=== PATIENT | male | born 1960 | race African-American/Black ===

== ENCOUNTER 2020-12-20 09:28 | Inpatient (IN) ==
[2020-12-20 10:05] LABS: ABG Base Excess 0.4 MMOL/L (-2.5-2.5); ABG HCO3 24.7 MMOL/L (20-26); ABG Oxygen Saturation 93.8 % (95-100); ABG PCO2 40.3 MM HG (35-48); ABG PH 7.402 (7.35-7.45); ABG PO2 69.9 MM HG (80-95); ABG TCO2 21.9 MMOL/L (23-27)
[2020-12-20 10:15] LABS: Basophils # 0.1 10*3/uL (0.0-0.2); Basophils % 0.5 % (0.0-0.8); Eosinophils # 0.2 10*3/uL (0.0-0.87); Eosinophils % 1.5 % (0.00-10.9); Hematocrit 40.6 VOL% (42.0-52.0); Immature Granulocytes % 0.3 %; Immature Granulocytes Absolute 0.03 #; Lymphocytes # 2.7 10*3/uL (1.4-4.0); Lymphocytes % 27.3 % (21.2-54.2); Mean Corpuscular Volume 85.8 FL (87-102); Mean Platelet Volume 10.8 FL (9.6-12.0); Monocytes % 7.9 % (1.7-12.7); Neutrophils % 62.5 % (38.7-73.9); Platelet Count 211 T/CUMM (130-400); Red Blood Count 4.73 MC/CUMM (3.8-5.5); Red Cell Distribution Width 13.7 % (9.3-17.3)
[2020-12-20 10:32] LABS: PT Patient Result 11.1 SECS (10.5-12.0)
[2020-12-20 10:34] LABS: Bilirubin,Total 1.2 MG/DL (0.2-1.0); Osmolality,Calculated 285.4 MOS/KG (273-304); Potassium 4.1 MMOL/L (3.5-5.1); Total Protein 7.6 G/DL (6.4-8.2)
[2020-12-20] MEDS ORDERED: HEPARIN 1,000 UNIT/1 ML VIAL IV STA (11:14)
[2020-12-20] MEDS ORDERED: HEPARIN 5,000 UNIT/1 ML VIAL IV STA (11:16)
[2020-12-20] MEDS ORDERED: HEPARIN 5,000 UNIT/1 ML VIAL ONE (11:21)
[2020-12-20] MEDS: ENOXAPARIN 120 MG/0.8 ML SYRINGE SUBCUT SCH (12:30)
[2020-12-20] MEDS ORDERED: ALBUTEROL 2.5 MG/3 ML NEB RESP TX PRN (12:42)
[2020-12-20] MEDS ORDERED: GLUCAGON 1 MG VIAL IM PRN (12:42)
[2020-12-20] MEDS ORDERED: DEXTROSE 50% 25 GM/50 ML VIAL IV PRN (12:42)
[2020-12-20] MEDS: LACTATED RINGERS 1,000 ML IV SCH ×2 (14:00→23:31)
[2020-12-20] MEDS: INSULIN LISPRO 100 UNIT/ML SUBCUT SCH ×2 (16:35→20:37)
[2020-12-20] MEDS ORDERED: traZODone 50 MG TABLET PO PRN (19:55)
[2020-12-20] MEDS: traZODone 50 MG TABLET PO PRN (21:25)
[2020-12-21] MEDS: ENOXAPARIN 120 MG/0.8 ML SYRINGE SUBCUT SCH (00:20)
[2020-12-21 04:23] LABS: Basophils % 0.3 % (0.0-0.8); Eosinophils # 0.1 10*3/uL (0.0-0.87); Eosinophils % 1.3 % (0.00-10.9); Hematocrit 38.7 VOL% (42.0-52.0); Hemoglobin 12.4 GM/DL (14.0-18.0); Immature Granulocytes % 0.3 %; Immature Granulocytes Absolute 0.03 #; Lymphocytes # 2.2 10*3/uL (1.4-4.0); Lymphocytes % 24.3 % (21.2-54.2); Mean Corpuscular Volume 85.2 FL (87-102); Mean Platelet Volume 10.6 FL (9.6-12.0); Monocytes % 8.3 % (1.7-12.7); Neutrophils % 65.5 % (38.7-73.9); Platelet Count 186 T/CUMM (130-400); Red Blood Count 4.54 MC/CUMM (3.8-5.5); Red Cell Distribution Width 13.7 % (9.3-17.3); White Blood Count 9.1 T/CUMM (4-12)
[2020-12-21 04:32] LABS: PT Patient Result 11.3 SECS (10.5-12.0)
[2020-12-21 04:42] LABS: ABG Base Excess 2.4 MMOL/L (-2.5-2.5); ABG HCO3 26.6 MMOL/L (20-26); ABG Oxygen Saturation 97.3 % (95-100); ABG PH 7.405 (7.35-7.45); ABG PO2 93.5 MM HG (80-95); ABG TCO2 24.3 MMOL/L (23-27); Allen Test Positive
[2020-12-21 04:51] LABS: Albumin 3.2 G/DL (3.4-5.0); Bilirubin,Total 0.9 MG/DL (0.2-1.0); Calcium 8.9 MG/DL (8.5-10.1); Osmolality,Calculated 278.7 MOS/KG (273-304); Potassium 3.9 MMOL/L (3.5-5.1); Risk Ratio 2.33; Total Protein 6.6 G/DL (6.4-8.2); VLDL Cholesterol 18.6 MG/DL
[2020-12-21] MEDS ORDERED: hydrALAZINE 20 MG/1 ML VIAL IV PRN (05:10)
[2020-12-21] MEDS ORDERED: amLODIPine 10 MG TABLET PO ONE (05:16)
[2020-12-21] MEDS: INSULIN LISPRO 100 UNIT/ML SUBCUT SCH ×4 (07:43→21:54)
[2020-12-21] MEDS ORDERED: amLODIPine 10 MG TABLET PO SCH (09:00)
[2020-12-21] MEDS: LACTATED RINGERS 1,000 ML IV SCH ×2 (09:56→23:47)
[2020-12-21] MEDS: APIXABAN 5 MG TABLET PO SCH ×2 (10:30→21:53)
[2020-12-21] MEDS: INSULIN GLARGINE 100 UNIT/ML SUBCUT SCH (10:34)
[2020-12-21] MEDS: ATORVASTATIN 40 MG TABLET PO SCH (21:53)
[2020-12-21] MEDS: traZODone 50 MG TABLET PO PRN (22:42)
[2020-12-22 05:58] LABS: Basophils % 0.5 % (0.0-0.8); Eosinophils # 0.1 10*3/uL (0.0-0.87); Eosinophils % 1.7 % (0.00-10.9); Hematocrit 36.2 VOL% (42.0-52.0); Hemoglobin 11.9 GM/DL (14.0-18.0); Immature Granulocytes % 0.2 %; Immature Granulocytes Absolute 0.02 #; Lymphocytes # 1.9 10*3/uL (1.4-4.0); Lymphocytes % 22.8 % (21.2-54.2); Mean Corpuscular HGB Conc 32.9 GM/DL (32-36); Monocytes % 10.4 % (1.7-12.7); Neutrophils % 64.4 % (38.7-73.9); Platelet Count 152 T/CUMM (130-400); Red Blood Count 4.26 MC/CUMM (3.8-5.5); Red Cell Distribution Width 13.9 % (9.3-17.3); White Blood Count 8.5 T/CUMM (4-12)
[2020-12-22 07:03] LABS: Calcium 8.8 MG/DL (8.5-10.1); Potassium 3.8 MMOL/L (3.5-5.1); Total Protein 6.5 G/DL (6.4-8.2)
[2020-12-22] MEDS: APIXABAN 5 MG TABLET PO SCH ×2 (08:25→21:44)
[2020-12-22] MEDS: amLODIPine 10 MG TABLET PO SCH (08:25)
[2020-12-22] MEDS: INSULIN LISPRO 100 UNIT/ML SUBCUT SCH ×4 (08:25→21:45)
[2020-12-22] MEDS: INSULIN GLARGINE 100 UNIT/ML SUBCUT SCH (08:26)
[2020-12-22] MEDS ORDERED: ALUMINUM/MAGNES/SIMETH MAX STR 30 ML UDCUP PO PRN (09:57)
[2020-12-22 11:54] LABS: Bilirubin,Urine Negative (Negative); Blood, Urine Negative (Negative); Glucose,Urine (UA) 50 mg/dL (Negative); Ketones,Urine Negative (Negative); Mucus,Urine Few /LPF (Occasional); Nitrite,Urine Negative (Negative); Protein,Urine 100 MG/DL; RBC,Urine 5 /HPF (0-4); Urine Appearance CLEAR (Clear); Urine Color Yellow (Yellow); Urine Specific Gravity 1.021 (1.001-1.035); Urine Urobilinogen < 2.0 EU/DL (0.2-1.0)
[2020-12-22] MEDS: ATORVASTATIN 40 MG TABLET PO SCH (21:44)
[2020-12-23] MEDS: amLODIPine 10 MG TABLET PO SCH (08:15)
[2020-12-23] MEDS: APIXABAN 5 MG TABLET PO SCH (08:16)
[2020-12-23] MEDS: INSULIN GLARGINE 100 UNIT/ML SUBCUT SCH (08:16)
[2020-12-23] MEDS: INSULIN LISPRO 100 UNIT/ML SUBCUT SCH ×2 (08:17→13:14)
[2020-12-23] MEDS ORDERED: PANTOPRAZOLE 40 MG TABLET PO SCH (09:00)
[2020-12-23 12:58] VITALS: BP 163/90
== END 2020-12-23 15:11 | disposition home or self-care (01) | DRG 175 ==
LOC: N.ED 09:28 → SUATTDRO 12:42 → N.EDINP 12:42 → N.ICU 13:34 → N.TELEN 12-21 11:36
PROVIDERS: ADMIT Family Medicine; ATTEND Internal Medicine

== ENCOUNTER 2021-05-29 17:09 | Inpatient (IN) ==
[2021-05-29] MEDS ORDERED: ASPIRIN 325 MG TABLET PO STA (17:54)
[2021-05-29 18:51] LABS: Basophils % 0.1 % (0.0-0.8); Hematocrit 45.6 VOL% (42.0-52.0); Hemoglobin 14.8 GM/DL (14.0-18.0); Immature Granulocytes % 0.7 %; Immature Granulocytes Absolute 0.08 #; Lymphocytes # 0.5 10*3/uL (1.4-4.0); Lymphocytes % 4.3 % (21.2-54.2); Mean Corpuscular HGB Conc 32.5 GM/DL (32-36); Mean Corpuscular Volume 83.7 FL (87-102); Mean Platelet Volume 11.7 FL (9.6-12.0); Monocytes % 6.3 % (1.7-12.7); Neutrophils % 88.6 % (38.7-73.9); Platelet Count 144 T/CUMM (130-400); Red Blood Count 5.45 MC/CUMM (3.8-5.5); Red Cell Distribution Width 20.3 % (9.3-17.3); White Blood Count 12.1 T/CUMM (4-12)
[2021-05-29 19:12] LABS: INR 1.3; PT Patient Result 14.2 SECS (10.5-12.0)
[2021-05-29 19:16] LABS: Albumin 2.8 G/DL (3.4-5.0); Bilirubin,Total 2.6 MG/DL (0.20-1.00); Calcium 8.8 MG/DL (8.5-10.1); Lymphocytes 3 % (20-55); Osmolality,Calculated 299.2 MOS/KG (273-304); Segmented Neutrophils 96 % (50-85); Total Cells Counted 100; Total Protein 7.2 G/DL (6.4-8.2)
[2021-05-29 19:17] LABS: Anisocytosis 1+; Macrocytosis Slight; Microcytosis 1+; Platelet Estimate Adequate; Polychromasia Few; Target Cells Few
[2021-05-29 19:18] LABS: Burr Cells 1+; Poikilocytosis 1+
[2021-05-29] MEDS ORDERED: FUROSEMIDE 40 MG/4 ML VIAL IV STA (19:43)
[2021-05-29] MEDS ORDERED: INSULIN REGULAR 100 UNIT/ML IV STA (19:43)
[2021-05-29] MEDS ORDERED: GLUCAGON 1 MG VIAL IM PRN (20:19)
[2021-05-29] MEDS ORDERED: ACETAMINOPHEN 325 MG TABLET PO PRN (20:41)
[2021-05-29] MEDS ORDERED: ONDANSETRON 4 MG/2 ML VIAL IV PRN (20:41)
[2021-05-29] MEDS ORDERED: DEXTROSE 50% 25 GM/50 ML SYRINGE IV PRN (20:54)
[2021-05-29] MEDS ORDERED: INSULIN REGULAR 100 UNIT/ML SUBCUT STA (20:57)
[2021-05-29] MEDS ORDERED: INSULIN LISPRO 100 UNIT/ML SUBCUT SCH (21:00)
[2021-05-29] MEDS ORDERED: APIXABAN 5 MG TABLET PO SCH (21:00)
[2021-05-29 22:14] LABS: Hepatitis B Core IgM Quant 0.14 Index; Hepatitis B Surface Ag Quant < 0.10 Index; Hepatitis B Surface Ag Result Non-Reactive (NonReactive); Hepatitis C Virus Ab Quant < 0.02 Index; Hepatitis C Virus Ab Result Non-Reactive (NonReactive)
[2021-05-29] MEDS: ENOXAPARIN 120 MG/0.8 ML SYRINGE SUBCUT SCH (22:47)
[2021-05-30] MEDS: INSULIN LISPRO 100 UNIT/ML SUBCUT SCH ×6 (00:11→20:42)
[2021-05-30 02:26] LABS: Basophils % 0.1 % (0.0-0.8); Eosinophils % 0.2 % (0.00-10.9); Hematocrit 45.7 VOL% (42.0-52.0); Hemoglobin 14.9 GM/DL (14.0-18.0); Immature Granulocytes % 0.6 %; Immature Granulocytes Absolute 0.08 #; Lymphocytes # 1.2 10*3/uL (1.4-4.0); Mean Corpuscular HGB Conc 32.6 GM/DL (32-36); Mean Corpuscular Volume 81.9 FL (87-102); Mean Platelet Volume 12.5 FL (9.6-12.0); Monocytes % 7.3 % (1.7-12.7); Neutrophils % 82.8 % (38.7-73.9); Platelet Count 136 T/CUMM (130-400); Red Blood Count 5.58 MC/CUMM (3.8-5.5); White Blood Count 13.6 T/CUMM (4-12)
[2021-05-30 02:50] LABS: Albumin 2.6 G/DL (3.4-5.0); Bilirubin,Total 2.4 MG/DL (0.20-1.00); Osmolality,Calculated 285.4 MOS/KG (273-304); Potassium 4.1 MMOL/L (3.5-5.1); Total Protein 7.4 G/DL (6.4-8.2)
[2021-05-30] MEDS ORDERED: FUROSEMIDE 40 MG/4 ML VIAL IV SCH (08:00)
[2021-05-30] MEDS ORDERED: hydrALAZINE 20 MG/1 ML VIAL IV PRN (10:05)
[2021-05-30] MEDS: ASPIRIN EC 81 MG TABLET PO SCH (10:35)
[2021-05-30] MEDS: ENOXAPARIN 120 MG/0.8 ML SYRINGE SUBCUT SCH ×2 (10:36→22:30)
[2021-05-30] MEDS: PANTOPRAZOLE 40 MG TABLET PO SCH (10:36)
[2021-05-30] MEDS: LACTATED RINGERS 1,000 ML IV SCH ×2 (10:37→21:00)
[2021-05-30] MEDS ORDERED: LORazepam 2 MG/1 ML VIAL IV ONE (13:11)
[2021-05-30 16:55] LABS: Barbiturates Screen,Urine Negative (Negative); Benzodiazepines Screen,Urine Negative (Negative); Cannabinoid Screen,Urine Negative (Negative); Opiate Screen,Urine Positive (Negative); Phencyclidine Screen,Urine Negative (Negative)
[2021-05-31] MEDS: INSULIN LISPRO 100 UNIT/ML SUBCUT SCH ×6 (00:55→22:18)
[2021-05-31 05:26] LABS: Basophils % 0.1 % (0.0-0.8); Eosinophils # 0.1 10*3/uL (0.0-0.87); Eosinophils % 0.6 % (0.00-10.9); Hematocrit 44.8 VOL% (42.0-52.0); Immature Granulocytes % 0.6 %; Immature Granulocytes Absolute 0.05 #; Lymphocytes # 2.2 10*3/uL (1.4-4.0); Lymphocytes % 28.1 % (21.2-54.2); Mean Corpuscular HGB Conc 33.5 GM/DL (32-36); Mean Corpuscular Volume 80.1 FL (87-102); Mean Platelet Volume 11.9 FL (9.6-12.0); Monocytes % 10.7 % (1.7-12.7); Neutrophils % 59.9 % (38.7-73.9); Platelet Count 202 T/CUMM (130-400); Red Blood Count 5.59 MC/CUMM (3.8-5.5); Red Cell Distribution Width 19.9 % (9.3-17.3)
[2021-05-31 05:43] LABS: Albumin 2.3 G/DL (3.4-5.0); Bilirubin,Total 2.3 MG/DL (0.20-1.00); Calcium 8.5 MG/DL (8.5-10.1); Potassium 3.9 MMOL/L (3.5-5.1); Total Protein 6.4 G/DL (6.4-8.2)
[2021-05-31] MEDS: LACTATED RINGERS 1,000 ML IV SCH (05:50)
[2021-05-31] MEDS: ASPIRIN EC 81 MG TABLET PO SCH (09:45)
[2021-05-31] MEDS: ENOXAPARIN 120 MG/0.8 ML SYRINGE SUBCUT SCH ×2 (09:45→21:47)
[2021-05-31] MEDS: PANTOPRAZOLE 40 MG TABLET PO SCH (09:45)
[2021-05-31] MEDS: guaiFENesin/CODEINE 5 ML LIQUID PO PRN (22:18)
[2021-06-01] MEDS: INSULIN LISPRO 100 UNIT/ML SUBCUT SCH ×7 (00:05→23:22)
[2021-06-01] MEDS: LACTATED RINGERS 1,000 ML IV SCH ×3 (07:21→17:26)
[2021-06-01] MEDS: guaiFENesin/CODEINE 5 ML LIQUID PO PRN ×2 (07:56→19:27)
[2021-06-01] MEDS: ASPIRIN EC 81 MG TABLET PO SCH (08:00)
[2021-06-01] MEDS: PANTOPRAZOLE 40 MG TABLET PO SCH (08:00)
[2021-06-01] MEDS: ENOXAPARIN 120 MG/0.8 ML SYRINGE SUBCUT SCH ×2 (09:01→21:18)
[2021-06-02] MEDS: LACTATED RINGERS 1,000 ML IV SCH ×2 (02:02→08:06)
[2021-06-02] MEDS: guaiFENesin/CODEINE 5 ML LIQUID PO PRN ×2 (03:37→23:58)
[2021-06-02] MEDS: INSULIN LISPRO 100 UNIT/ML SUBCUT SCH ×6 (05:02→23:45)
[2021-06-02 06:14] LABS: Basophils % 0.2 % (0.0-0.8); Eosinophils # 0.2 10*3/uL (0.0-0.87); Eosinophils % 1.8 % (0.00-10.9); Hematocrit 42.6 VOL% (42.0-52.0); Hemoglobin 13.9 GM/DL (14.0-18.0); Immature Granulocytes % 0.4 %; Immature Granulocytes Absolute 0.03 #; Lymphocytes # 1.8 10*3/uL (1.4-4.0); Lymphocytes % 22.2 % (21.2-54.2); Mean Corpuscular HGB Conc 32.6 GM/DL (32-36); Mean Corpuscular Volume 82.2 FL (87-102); Mean Platelet Volume 11.1 FL (9.6-12.0); Monocytes % 11.7 % (1.7-12.7); Neutrophils % 63.7 % (38.7-73.9); Platelet Count 216 T/CUMM (130-400); Red Blood Count 5.18 MC/CUMM (3.8-5.5); Red Cell Distribution Width 19.9 % (9.3-17.3); White Blood Count 8.1 T/CUMM (4-12)
[2021-06-02 06:40] LABS: Calcium 8.3 MG/DL (8.5-10.1); Potassium 4.1 MMOL/L (3.5-5.1)
[2021-06-02] MEDS: PANTOPRAZOLE 40 MG TABLET PO SCH (08:55)
[2021-06-02] MEDS: ENOXAPARIN 120 MG/0.8 ML SYRINGE SUBCUT SCH ×3 (08:55→21:00)
[2021-06-02] MEDS: ASPIRIN EC 81 MG TABLET PO SCH (08:55)
[2021-06-02] MEDS ORDERED: FUROSEMIDE 40 MG/4 ML VIAL IV ONE (11:02)
[2021-06-03] MEDS: INSULIN LISPRO 100 UNIT/ML SUBCUT SCH ×5 (03:52→20:55)
[2021-06-03 05:13] LABS: Basophils % 0.3 % (0.0-0.8); Eosinophils # 0.1 10*3/uL (0.0-0.87); Eosinophils % 1.4 % (0.00-10.9); Hemoglobin 13.5 GM/DL (14.0-18.0); Immature Granulocytes % 0.5 %; Immature Granulocytes Absolute 0.05 #; Lymphocytes # 2.1 10*3/uL (1.4-4.0); Lymphocytes % 21.5 % (21.2-54.2); Mean Corpuscular HGB Conc 32.1 GM/DL (32-36); Mean Corpuscular Volume 81.6 FL (87-102); Mean Platelet Volume 10.8 FL (9.6-12.0); Monocytes % 10.3 % (1.7-12.7); Platelet Count 259 T/CUMM (130-400); Red Blood Count 5.15 MC/CUMM (3.8-5.5); White Blood Count 9.6 T/CUMM (4-12)
[2021-06-03 05:36] LABS: Albumin 2.2 G/DL (3.4-5.0); Bilirubin,Total 2.4 MG/DL (0.20-1.00); Calcium 8.4 MG/DL (8.5-10.1); Osmolality,Calculated 277.8 MOS/KG (273-304); Potassium 4.3 MMOL/L (3.5-5.1); Total Protein 6.2 G/DL (6.4-8.2)
[2021-06-03] MEDS: ASPIRIN EC 81 MG TABLET PO SCH (08:54)
[2021-06-03] MEDS: PANTOPRAZOLE 40 MG TABLET PO SCH (08:54)
[2021-06-03] MEDS: ENOXAPARIN 120 MG/0.8 ML SYRINGE SUBCUT SCH ×2 (09:00→21:01)
[2021-06-04] MEDS: INSULIN LISPRO 100 UNIT/ML SUBCUT SCH ×5 (00:23→17:45)
[2021-06-04 06:12] LABS: Albumin 2.1 G/DL (3.4-5.0); Bilirubin,Total 3.3 MG/DL (0.20-1.00); Calcium 8.7 MG/DL (8.5-10.1); Osmolality,Calculated 277.8 MOS/KG (273-304); Potassium 4.6 MMOL/L (3.5-5.1); Total Protein 6.6 G/DL (6.4-8.2)
[2021-06-04 06:17] LABS: Basophils # 0.1 10*3/uL (0.0-0.2); Basophils % 0.5 % (0.0-0.8); Eosinophils # 0.1 10*3/uL (0.0-0.87); Eosinophils % 1.4 % (0.00-10.9); Hematocrit 44.4 VOL% (42.0-52.0); Hemoglobin 14.2 GM/DL (14.0-18.0); Immature Granulocytes % 0.4 %; Immature Granulocytes Absolute 0.04 #; Lymphocytes # 2.8 10*3/uL (1.4-4.0); Lymphocytes % 30.1 % (21.2-54.2); Mean Corpuscular Volume 82.4 FL (87-102); Mean Platelet Volume 10.3 FL (9.6-12.0); Monocytes % 12.1 % (1.7-12.7); Neutrophils % 55.5 % (38.7-73.9); Platelet Count 269 T/CUMM (130-400); Red Blood Count 5.39 MC/CUMM (3.8-5.5); Red Cell Distribution Width 20.3 % (9.3-17.3); White Blood Count 9.4 T/CUMM (4-12)
[2021-06-04] MEDS: ASPIRIN EC 81 MG TABLET PO SCH (09:57)
[2021-06-04] MEDS: ENOXAPARIN 120 MG/0.8 ML SYRINGE SUBCUT SCH ×2 (09:57→21:21)
[2021-06-04] MEDS: PANTOPRAZOLE 40 MG TABLET PO SCH (09:57)
[2021-06-05] MEDS: INSULIN LISPRO 100 UNIT/ML SUBCUT SCH ×6 (02:08→21:23)
[2021-06-05] MEDS: guaiFENesin/CODEINE 5 ML LIQUID PO PRN ×2 (02:20→18:27)
[2021-06-05 05:22] LABS: Basophils # 0.1 10*3/uL (0.0-0.2); Basophils % 0.6 % (0.0-0.8); Eosinophils # 0.1 10*3/uL (0.0-0.87); Eosinophils % 1.2 % (0.00-10.9); Hematocrit 40.5 VOL% (42.0-52.0); Hemoglobin 13.2 GM/DL (14.0-18.0); Immature Granulocytes % 0.5 %; Immature Granulocytes Absolute 0.04 #; Lymphocytes % 24.1 % (21.2-54.2); Mean Corpuscular HGB Conc 32.6 GM/DL (32-36); Mean Corpuscular Volume 81.5 FL (87-102); Mean Platelet Volume 10.8 FL (9.6-12.0); Monocytes % 12.5 % (1.7-12.7); Neutrophils % 61.1 % (38.7-73.9); Platelet Count 271 T/CUMM (130-400); Red Blood Count 4.97 MC/CUMM (3.8-5.5); Red Cell Distribution Width 19.9 % (9.3-17.3); White Blood Count 8.4 T/CUMM (4-12)
[2021-06-05 05:47] LABS: Eosinophils 3 % (0-10); Lymphocytes 18 % (20-55); Platelet Estimate Adequate; Segmented Neutrophils 74 % (50-85); Total Cells Counted 100
[2021-06-05 05:52] LABS: Albumin 2.1 G/DL (3.4-5.0); Bilirubin,Total 2.4 MG/DL (0.20-1.00); Calcium 8.5 MG/DL (8.5-10.1); Osmolality,Calculated 275.1 MOS/KG (273-304); Potassium 4.2 MMOL/L (3.5-5.1); Total Protein 6.1 G/DL (6.4-8.2)
[2021-06-05] MEDS: PANTOPRAZOLE 40 MG TABLET PO SCH (08:08)
[2021-06-05] MEDS: ASPIRIN EC 81 MG TABLET PO SCH (08:09)
[2021-06-05 20:03] LABS: Bacteria,Urine Moderate /HPF (Few); Bilirubin,Urine Negative (Negative); Blood, Urine Large mg/dL (Negative); Glucose,Urine (UA) Negative (Negative); Hyaline Casts,Urine 20 /LPF (0-3); Ketones,Urine Negative (Negative); Mucus,Urine Moderate /LPF (Occasional); Nitrite,Urine Negative (Negative); Protein,Urine 100 MG/DL; RBC,Urine 98 /HPF (0-4); Squamous Epithelial Cell,Urine Occasional /HPF (0-10); Urine Appearance CLOUDY (Clear); Urine Color Amber (Yellow); Urine Specific Gravity 1.027 (1.001-1.035)
[2021-06-06] MEDS: INSULIN LISPRO 100 UNIT/ML SUBCUT SCH ×6 (01:29→23:17)
[2021-06-06 05:10] LABS: Basophils # 0.1 10*3/uL (0.0-0.2); Basophils % 0.6 % (0.0-0.8); Eosinophils # 0.2 10*3/uL (0.0-0.87); Eosinophils % 1.9 % (0.00-10.9); Hematocrit 42.6 VOL% (42.0-52.0); Hemoglobin 13.9 GM/DL (14.0-18.0); Immature Granulocytes % 0.5 %; Immature Granulocytes Absolute 0.04 #; Lymphocytes # 2.1 10*3/uL (1.4-4.0); Lymphocytes % 26.4 % (21.2-54.2); Mean Corpuscular HGB Conc 32.6 GM/DL (32-36); Mean Corpuscular Volume 82.2 FL (87-102); Mean Platelet Volume 10.1 FL (9.6-12.0); Monocytes % 13.8 % (1.7-12.7); NRBC # 0.02 10*3/uL; Neutrophils % 56.8 % (38.7-73.9); Platelet Count 242 T/CUMM (130-400); Red Blood Count 5.18 MC/CUMM (3.8-5.5); Red Cell Distribution Width 20.3 % (9.3-17.3); White Blood Count 7.8 T/CUMM (4-12)
[2021-06-06 05:48] LABS: Bilirubin,Total 2.7 MG/DL (0.20-1.00); Calcium 8.4 MG/DL (8.5-10.1); Osmolality,Calculated 275.1 MOS/KG (273-304); Potassium 4.1 MMOL/L (3.5-5.1); Total Protein 6.1 G/DL (6.4-8.2)
[2021-06-06] MEDS: ASPIRIN EC 81 MG TABLET PO SCH (09:13)
[2021-06-06] MEDS: PANTOPRAZOLE 40 MG TABLET PO SCH (09:13)
[2021-06-06] MEDS ORDERED: DIAZEPAM 5 MG TABLET PO ONE (09:41)
[2021-06-06] MEDS: guaiFENesin/DM ER 600-30 MG TABLET PO PRN (17:46)
[2021-06-06] MEDS: ENOXAPARIN 120 MG/0.8 ML SYRINGE SUBCUT SCH (22:18)
[2021-06-07] MEDS: BENZONATATE 100 MG CAPSULE PO PRN ×3 (02:22→23:23)
[2021-06-07] MEDS: INSULIN LISPRO 100 UNIT/ML SUBCUT SCH ×6 (03:16→23:13)
[2021-06-07 05:45] LABS: Basophils # 0.1 10*3/uL (0.0-0.2); Basophils % 0.6 % (0.0-0.8); Eosinophils # 0.1 10*3/uL (0.0-0.87); Eosinophils % 0.8 % (0.00-10.9); Hematocrit 41.8 VOL% (42.0-52.0); Hemoglobin 13.6 GM/DL (14.0-18.0); Immature Granulocytes % 0.5 %; Immature Granulocytes Absolute 0.04 #; Lymphocytes # 2.5 10*3/uL (1.4-4.0); Lymphocytes % 28.6 % (21.2-54.2); Mean Corpuscular HGB Conc 32.5 GM/DL (32-36); Mean Corpuscular Volume 81.2 FL (87-102); Mean Platelet Volume 11.6 FL (9.6-12.0); Monocytes % 11.9 % (1.7-12.7); NRBC # 0.02 10*3/uL; Neutrophils % 57.6 % (38.7-73.9); Platelet Count 272 T/CUMM (130-400); Red Blood Count 5.15 MC/CUMM (3.8-5.5); Red Cell Distribution Width 20.6 % (9.3-17.3); White Blood Count 8.9 T/CUMM (4-12)
[2021-06-07 05:58] LABS: Bilirubin,Total 2.8 MG/DL (0.20-1.00); Calcium 8.4 MG/DL (8.5-10.1); Osmolality,Calculated 278.8 MOS/KG (273-304); Potassium 4.2 MMOL/L (3.5-5.1); Total Protein 6.1 G/DL (6.4-8.2)
[2021-06-07] MEDS: ENOXAPARIN 120 MG/0.8 ML SYRINGE SUBCUT SCH ×2 (09:36→21:06)
[2021-06-07] MEDS: PANTOPRAZOLE 40 MG TABLET PO SCH (09:36)
[2021-06-07] MEDS: ASPIRIN EC 81 MG TABLET PO SCH (09:36)
[2021-06-07] MEDS: guaiFENesin/DM ER 600-30 MG TABLET PO PRN (15:56)
[2021-06-08] MEDS: INSULIN LISPRO 100 UNIT/ML SUBCUT SCH ×6 (03:43→23:40)
[2021-06-08] MEDS: guaiFENesin/DM ER 600-30 MG TABLET PO PRN ×2 (04:21→21:33)
[2021-06-08 05:25] LABS: Basophils # 0.1 10*3/uL (0.0-0.2); Eosinophils # 0.1 10*3/uL (0.0-0.87); Eosinophils % 1.1 % (0.00-10.9); Hematocrit 42.1 VOL% (42.0-52.0); Hemoglobin 13.9 GM/DL (14.0-18.0); Immature Granulocytes % 0.5 %; Immature Granulocytes Absolute 0.04 #; Lymphocytes # 2.3 10*3/uL (1.4-4.0); Lymphocytes % 28.6 % (21.2-54.2); Mean Corpuscular Volume 81.3 FL (87-102); Mean Platelet Volume 10.6 FL (9.6-12.0); Monocytes % 10.4 % (1.7-12.7); Neutrophils % 58.4 % (38.7-73.9); Platelet Count 261 T/CUMM (130-400); Red Blood Count 5.18 MC/CUMM (3.8-5.5); Red Cell Distribution Width 20.8 % (9.3-17.3); White Blood Count 8.2 T/CUMM (4-12)
[2021-06-08 05:42] LABS: Bilirubin,Total 2.4 MG/DL (0.20-1.00); Calcium 8.7 MG/DL (8.5-10.1); Total Protein 5.9 G/DL (6.4-8.2)
[2021-06-08] MEDS: ASPIRIN EC 81 MG TABLET PO SCH (09:20)
[2021-06-08] MEDS: PANTOPRAZOLE 40 MG TABLET PO SCH (09:20)
[2021-06-08] MEDS: ENOXAPARIN 120 MG/0.8 ML SYRINGE SUBCUT SCH ×2 (09:20→21:33)
[2021-06-09] MEDS: INSULIN LISPRO 100 UNIT/ML SUBCUT SCH ×6 (03:13→23:08)
[2021-06-09 06:39] LABS: Basophils # 0.1 10*3/uL (0.0-0.2); Basophils % 0.8 % (0.0-0.8); Eosinophils # 0.1 10*3/uL (0.0-0.87); Eosinophils % 0.8 % (0.00-10.9); Hematocrit 42.7 VOL% (42.0-52.0); Hemoglobin 13.9 GM/DL (14.0-18.0); Immature Granulocytes % 0.4 %; Immature Granulocytes Absolute 0.03 #; Lymphocytes # 2.2 10*3/uL (1.4-4.0); Lymphocytes % 28.4 % (21.2-54.2); Mean Corpuscular HGB Conc 32.6 GM/DL (32-36); Mean Corpuscular Volume 81.3 FL (87-102); Mean Platelet Volume 10.9 FL (9.6-12.0); Neutrophils % 59.6 % (38.7-73.9); Platelet Count 230 T/CUMM (130-400); Red Blood Count 5.25 MC/CUMM (3.8-5.5); White Blood Count 7.9 T/CUMM (4-12)
[2021-06-09 06:59] LABS: Bilirubin,Total 1.9 MG/DL (0.20-1.00); Calcium 8.4 MG/DL (8.5-10.1); Osmolality,Calculated 276.8 MOS/KG (273-304); Potassium 4.2 MMOL/L (3.5-5.1); Total Protein 6.1 G/DL (6.4-8.2)
[2021-06-09] MEDS: PANTOPRAZOLE 40 MG TABLET PO SCH (09:15)
[2021-06-09] MEDS: BENZONATATE 100 MG CAPSULE PO PRN (09:15)
[2021-06-09] MEDS: guaiFENesin/DM ER 600-30 MG TABLET PO PRN ×2 (09:15→22:11)
[2021-06-09] MEDS: ASPIRIN EC 81 MG TABLET PO SCH (09:15)
[2021-06-09] MEDS: ENOXAPARIN 120 MG/0.8 ML SYRINGE SUBCUT SCH ×2 (09:16→22:10)
[2021-06-10] MEDS: INSULIN LISPRO 100 UNIT/ML SUBCUT SCH ×6 (03:13→23:50)
[2021-06-10 04:25] LABS: Basophils # 0.1 10*3/uL (0.0-0.2); Basophils % 1.1 % (0.0-0.8); Eosinophils # 0.1 10*3/uL (0.0-0.87); Eosinophils % 0.8 % (0.00-10.9); Hemoglobin 14.6 GM/DL (14.0-18.0); Immature Granulocytes % 0.3 %; Immature Granulocytes Absolute 0.02 #; Lymphocytes # 2.1 10*3/uL (1.4-4.0); Mean Corpuscular HGB Conc 33.2 GM/DL (32-36); Mean Corpuscular Volume 80.7 FL (87-102); Mean Platelet Volume 10.3 FL (9.6-12.0); Monocytes % 10.4 % (1.7-12.7); Neutrophils % 58.4 % (38.7-73.9); Platelet Count 227 T/CUMM (130-400); Red Blood Count 5.45 MC/CUMM (3.8-5.5); Red Cell Distribution Width 21.2 % (9.3-17.3); White Blood Count 7.3 T/CUMM (4-12)
[2021-06-10 04:54] LABS: Calcium 8.6 MG/DL (8.5-10.1); Osmolality,Calculated 277.8 MOS/KG (273-304); Potassium 4.2 MMOL/L (3.5-5.1)
[2021-06-10] MEDS: ENOXAPARIN 120 MG/0.8 ML SYRINGE SUBCUT SCH ×2 (10:04→21:48)
[2021-06-10] MEDS: PANTOPRAZOLE 40 MG TABLET PO SCH (10:04)
[2021-06-10] MEDS: ASPIRIN EC 81 MG TABLET PO SCH (10:04)
[2021-06-10] MEDS: guaiFENesin/DM ER 600-30 MG TABLET PO PRN (18:09)
[2021-06-10] MEDS: BENZONATATE 100 MG CAPSULE PO PRN (18:09)
[2021-06-11] MEDS: INSULIN LISPRO 100 UNIT/ML SUBCUT SCH ×5 (04:08→21:07)
[2021-06-11 08:41] LABS: Basophils # 0.1 10*3/uL (0.0-0.2); Basophils % 0.8 % (0.0-0.8); Eosinophils # 0.1 10*3/uL (0.0-0.87); Hematocrit 42.9 VOL% (42.0-52.0); Immature Granulocytes % 0.3 %; Immature Granulocytes Absolute 0.02 #; Lymphocytes # 2.4 10*3/uL (1.4-4.0); Lymphocytes % 37.6 % (21.2-54.2); Mean Corpuscular HGB Conc 32.6 GM/DL (32-36); Mean Corpuscular Volume 81.3 FL (87-102); Monocytes % 10.8 % (1.7-12.7); Neutrophils % 49.5 % (38.7-73.9); Platelet Count 207 T/CUMM (130-400); Red Blood Count 5.28 MC/CUMM (3.8-5.5); Red Cell Distribution Width 21.4 % (9.3-17.3); White Blood Count 6.3 T/CUMM (4-12)
[2021-06-11] MEDS: guaiFENesin/DM ER 600-30 MG TABLET PO PRN ×2 (08:45→21:03)
[2021-06-11] MEDS: BENZONATATE 100 MG CAPSULE PO PRN ×2 (08:45→17:24)
[2021-06-11] MEDS: ASPIRIN EC 81 MG TABLET PO SCH (08:45)
[2021-06-11] MEDS: PANTOPRAZOLE 40 MG TABLET PO SCH (08:45)
[2021-06-11] MEDS: ENOXAPARIN 120 MG/0.8 ML SYRINGE SUBCUT SCH ×3 (08:45→21:03)
[2021-06-11 09:02] LABS: Calcium 8.4 MG/DL (8.5-10.1); Osmolality,Calculated 279.7 MOS/KG (273-304); Potassium 3.8 MMOL/L (3.5-5.1)
[2021-06-12] MEDS: INSULIN LISPRO 100 UNIT/ML SUBCUT SCH ×5 (02:30→15:18)
[2021-06-12 05:50] LABS: Basophils # 0.1 10*3/uL (0.0-0.2); Basophils % 0.9 % (0.0-0.8); Eosinophils # 0.1 10*3/uL (0.0-0.87); Eosinophils % 0.9 % (0.00-10.9); Hemoglobin 14.7 GM/DL (14.0-18.0); Immature Granulocytes % 0.4 %; Immature Granulocytes Absolute 0.02 #; Lymphocytes # 1.8 10*3/uL (1.4-4.0); Lymphocytes % 32.7 % (21.2-54.2); Mean Corpuscular HGB Conc 32.7 GM/DL (32-36); Mean Corpuscular Volume 81.4 FL (87-102); Mean Platelet Volume 10.8 FL (9.6-12.0); Monocytes % 12.1 % (1.7-12.7); Platelet Count 179 T/CUMM (130-400); Red Blood Count 5.53 MC/CUMM (3.8-5.5); Red Cell Distribution Width 21.9 % (9.3-17.3); White Blood Count 5.6 T/CUMM (4-12)
[2021-06-12 06:06] LABS: Calcium 8.5 MG/DL (8.5-10.1); Osmolality,Calculated 285.1 MOS/KG (273-304)
[2021-06-12] MEDS: ASPIRIN EC 81 MG TABLET PO SCH (09:08)
[2021-06-12] MEDS: PANTOPRAZOLE 40 MG TABLET PO SCH (09:08)
[2021-06-12] MEDS: ENOXAPARIN 120 MG/0.8 ML SYRINGE SUBCUT SCH (09:08)
[2021-06-12 15:45] VITALS: BP 109/83
== END 2021-06-12 17:19 | disposition home or self-care (01) | DRG 687 ==
LOC: N.ED 17:09 → N.EDINP 17:09 → N.TELEN 05-30 00:23 → SUATTDRO 05-30 08:40
PROVIDERS: ADMIT Internal Medicine; ATTEND Hospitalist

== ENCOUNTER 2022-03-02 14:23 | Observation (INO) ==
[2022-03-02] MEDS ORDERED: SODIUM CHLORIDE 0.9% 500 ML IV STA (15:21)
[2022-03-02 17:02] LABS: Basophils # 0.1 10*3/uL (0.0-0.2); Basophils % 1.3 % (0.0-0.8); Eosinophils # 0.2 10*3/uL (0.0-0.87); Eosinophils % 2.8 % (0.00-10.9); Hematocrit 47.9 VOL% (42.0-52.0); Hemoglobin 15.4 GM/DL (14.0-18.0); Immature Granulocytes % 0.3 %; Immature Granulocytes Absolute 0.02 #; Lymphocytes % 32.2 % (21.2-54.2); Mean Corpuscular HGB Conc 32.2 GM/DL (32-36); Mean Corpuscular Volume 86.3 FL (87-102); Mean Platelet Volume 10.5 FL (9.6-12.0); Monocytes # 0.5 10*3/uL (0.11-0.8); Monocytes % 8.5 % (1.7-12.7); Neutrophils % 54.9 % (38.7-73.9); Platelet Count 242 T/CUMM (130-400); Red Blood Count 5.55 MC/CUMM (3.8-5.5); Red Cell Distribution Width 20.9 % (9.3-17.3); White Blood Count 6.1 T/CUMM (4-12)
[2022-03-02 17:13] LABS: INR 2.1; PT Patient Result 22.3 SECS (10.1-12.1); Partial Thromboplastin Time 42.1 SECS (23.7-32.9)
[2022-03-02 17:42] LABS: Bilirubin,Total 2.8 MG/DL (0.20-1.00); Calcium 10.1 MG/DL (8.5-10.1); Osmolality,Calculated 297.5 MOS/KG (273-304); Potassium 5.6 MMOL/L (3.5-5.1); Total Protein 8.1 G/DL (6.4-8.2)
[2022-03-02] MEDS ORDERED: DOCUSATE SODIUM 100 MG CAPSULE PO PRN (18:49)
[2022-03-02] MEDS ORDERED: DEXTROSE 10% 250 ML BAG IV PRN (18:49)
[2022-03-02] MEDS ORDERED: ONDANSETRON 4 MG/2 ML VIAL IV PRN (18:49)
[2022-03-02] MEDS ORDERED: GLUCAGON 1 MG VIAL IM PRN (18:49)
[2022-03-02 19:41] LABS: Glucose,Urine (UA) Negative (Negative); Hyaline Casts,Urine 34 /LPF (0-3); Ketones,Urine 15 mg/dL (Negative); Mucus,Urine Occasional /LPF (Occasional); Nitrite,Urine Negative (Negative); Protein,Urine 100 mg/dL (Negative); RBC,Urine 15-20 /HPF (0-4); Urine Appearance Clear (Clear); Urine Color Dark Yellow (Yellow)
[2022-03-02 19:42] LABS: Bilirubin,Urine Moderate mg/dL (Negative); Blood, Urine Small mg/dL (Negative); Urine Urobilinogen 0.2 eU/dL (<2.0)
[2022-03-02] MEDS ORDERED: ZIPRASIDONE 20 MG/1 ML VIAL IM ONE (19:46)
[2022-03-02 19:57] LABS: Barbiturates Screen,Urine Negative (Negative); Benzodiazepines Screen,Urine Negative (Negative); Cannabinoid Screen,Urine Negative (Negative); Opiate Screen,Urine Positive (Negative); Phencyclidine Screen,Urine Negative (Negative)
[2022-03-02] MEDS: SODIUM CHLORIDE 0.45% 1,000 ML IV SCH (20:20)
[2022-03-03 04:19] LABS: Hyaline Casts,Urine 7 /LPF (0-3); Mucus,Urine Moderate /LPF (Occasional); RBC,Urine 1071 /HPF (0-4); Squamous Epithelial Cell,Urine Occasional /HPF (0-10)
[2022-03-03 04:20] LABS: Bilirubin,Urine Moderate mg/dL (Negative); Blood, Urine Large mg/dL (Negative); Glucose,Urine (UA) Negative (Negative); Ketones,Urine Trace mg/dL (Negative); Nitrite,Urine Negative (Negative); Protein,Urine >=300 mg/dL (Negative); Urine Appearance Cloudy (Clear); Urine Color Dark Yellow (Yellow); Urine Specific Gravity 1.025 (1.001-1.035); Urine Urobilinogen 0.2 eU/dL (<2.0)
[2022-03-03 05:59] LABS: Basophils # 0.1 10*3/uL (0.0-0.2); Basophils % 0.9 % (0.0-0.8); Eosinophils # 0.1 10*3/uL (0.0-0.87); Eosinophils % 1.1 % (0.00-10.9); Hematocrit 49.5 VOL% (42.0-52.0); Hemoglobin 15.8 GM/DL (14.0-18.0); Immature Granulocytes % 0.6 %; Immature Granulocytes Absolute 0.05 #; Lymphocytes # 1.5 10*3/uL (1.4-4.0); Lymphocytes % 18.4 % (21.2-54.2); Mean Corpuscular HGB Conc 31.9 GM/DL (32-36); Mean Corpuscular Volume 85.9 FL (87-102); Mean Platelet Volume 10.3 FL (9.6-12.0); Monocytes # 0.8 10*3/uL (0.11-0.8); Monocytes % 10.2 % (1.7-12.7); NRBC # 0.02 10*3/uL; Neutrophils % 68.8 % (38.7-73.9); Platelet Count 206 T/CUMM (130-400); Red Blood Count 5.76 MC/CUMM (3.8-5.5); Red Cell Distribution Width 21.2 % (9.3-17.3); White Blood Count 8.1 T/CUMM (4-12)
[2022-03-03 06:30] LABS: Calcium 9.7 MG/DL (8.5-10.1); Osmolality,Calculated 296.7 MOS/KG (273-304); Potassium 5.5 MMOL/L (3.5-5.1)
[2022-03-03] MEDS ORDERED: SODIUM POLYSTYRENE SULFATE 15 GM/60 ML BOTTLE PO STA (08:08)
[2022-03-03] MEDS ORDERED: ENOXAPARIN 80 MG/0.8 ML SYRINGE SUBCUT SCH (09:00)
[2022-03-03] MEDS: SODIUM CHLORIDE 0.45% 1,000 ML IV SCH ×2 (09:33→18:26)
[2022-03-03] MEDS ORDERED: SODIUM POLYSTYRENE SULFATE 15 GM/60 ML BOTTLE RECTAL ONE (14:00)
[2022-03-03] MEDS ORDERED: HYDROmorphone 1 MG/1 ML SYRINGE IV PRN (16:06)
[2022-03-03] MEDS ORDERED: LORazepam 2 MG/1 ML VIAL IV PRN (16:09)
[2022-03-04] MEDS: SODIUM CHLORIDE 0.45% 1,000 ML IV SCH ×2 (08:10→10:28)
[2022-03-04 09:12] VITALS: BP 124/96
== END 2022-03-04 13:16 | disposition hospice, home (50) ==
LOC: EDUNIT# → N.ED 14:23 → N.EDINP 14:23 → SUATTDRO 18:48 → N.5E 20:31
PROVIDERS: ADMIT Hospitalist; ATTEND Internal Medicine